=== PATIENT | female | born 1990 | race Caucasian/White ===

== ENCOUNTER 2019-07-07 08:22 | Emergency (ER) | payer OTHER ==
[~2019-07-07] VITALS: Ht 157.5 cm; Wt 69.9 kg
[2019-07-07 08:35] VITALS: BP 183/114
--- NOTE | 2019-07-07 08:49 | NUR ---
RECEIVED A 29/F FROM TRIAGE FOR C/O R SHOULDER AND STERNAL PAIN X 2 DAYS. DENIES ANY RECENT INJURY/TRAUMA. NO DEFORMITY NOTED. +ROM WITH PAIN. IN BED FOR MSE.
--- NOTE | 2019-07-07 09:35 | NUR ---
Patient discharged with v/s stable. Written and verbal after care instructions given and explained. Patient verbalized understanding. Ambulatory with steady gait. All questions addressed prior to discharge. Advised to follow up with PMD.
[2019-07-07 09:36] VITALS: BP 155/94
== END 2019-07-07 09:37 | disposition home or self-care (01) ==
LOC: MED 08:22
DX: M62.838 Other muscle spasm (principal); I10 Essential (primary) hypertension
CPT/HCPCS: 99281

== ENCOUNTER 2019-12-13 13:05 | Emergency (ER) | payer OTHER ==
[~2019-12-13] VITALS: Ht 160 cm; Wt 68.0 kg
[2019-12-13 13:13] VITALS: BP 144/101
--- NOTE | 2019-12-13 14:28 | NUR ---
AMBULATED TO BED 10
--- NOTE | 2019-12-13 14:39 | NUR ---
29/F presents to ED with complaints of epigastric pain starting this morning. Patient states pain started suddenly, non provoked, 02/06. Pt states she was drinking alcohol last night. Denies any N/V. Patient awake and alert appropriate to age. VSS .
[2019-12-13] MEDS ORDERED: ONDANSETRON 4 MG/2 ML VIAL IVP ONE ×2 (15:15→19:20)
[2019-12-13] MEDS ORDERED: MORPHINE SULFATE 4 MG/ML SYR IVP ONE ×2 (15:15→19:20)
[2019-12-13 15:32] LABS: BASOPHILS # (AUTO) 0.1 K/uL (0.00-0.22); BASOPHILS % (AUTO) 0.5 % (0.0-2.0); EOSINOPHILS % (AUTO) 0.2 % (0.0-4.0); HEMATOCRIT 40.5 % (36-48); HEMOGLOBIN 12.9 g/dL (12.0-16.0); LYMPHOCYTES # (AUTO) 1.3 K/uL (2.5-16.5); LYMPHOCYTES % (AUTO) 9.9 % (20.5-51.1); MEAN CORPUSCULAR HEMOGLOBIN 28 pg (27-31); MEAN CORPUSCULAR HGB CONC 32 g/dL (33-37); MEAN CORPUSCULAR VOLUME 88.8 fL (80-94); MONOCYTES # (AUTO) 0.9 K/uL (0.8-1.0); MONOCYTES % (AUTO) 7.2 % (1.7-9.3); NEUTROPHILS # (AUTO) 10.5 K/uL (1.8-7.7); NEUTROPHILS % (AUTO) 82.2 % (42.2-75.2); PLATELET COUNT (AUTO) 308 K/uL (140-450); RED BLOOD CELL COUNT(AUTO) 4.56 MIL/uL (4.20-5.40); RED CELL DISTRIBUTION WIDTH 12.9 % (11.6-13.7); WHITE BLOOD COUNT (AUTO) 12.8 K/uL (4.8-10.8)
--- NOTE | 2019-12-13 15:38 | NUR ---
PT RESTING IN BED, SIDE RAIL X1
--- NOTE | 2019-12-13 15:38 | NUR ---
US AT BEDSIDE
[2019-12-13 15:52] LABS: ALBUMIN 4.5 g/dL (3.4-5.0); ANION GAP 14.8 (8-16); CARBON DIOXIDE 29.1 mmol/L (21-32); CREATININE 0.9 mg/dL (0.6-1.3); POTASSIUM 3.9 mmol/L (3.5-5.1); TOTAL BILIRUBIN 0.4 mg/dL (0.0-1.0)
--- NOTE | 2019-12-13 18:40 | NUR ---
PT TAKEN TO CT VIA WHEELCHAIR
[2019-12-13 18:41] VITALS: BP 140/96
--- NOTE | 2019-12-13 19:18 | NUR ---
REPORT GIVEN TO SCOTTY MCKEON FOR CONTINUITY OF CARE
[2019-12-13] MEDS ORDERED: FAMOTIDINE 20 MG/2 ML VIAL IVP ONE (19:20)
[2019-12-13 19:27] LABS: APPEARANCE,URINE CLEAR (CLEAR); BILIRUBIN,URINE NEGATIVE (NEGATIVE); BLOOD, URINE NEGATIVE (NEGATIVE); COLOR,URINE YELLOW (YELLOW); LEUKOCYTE ESTERASE ,URINE NEGATIVE (NEGATIVE); NITRITE, URINE NEGATIVE (NEGATIVE); PH,URINE 6.5 (5.0-9.0); UGLUCOSE NEGATIVE (NEGATIVE)
== END 2019-12-13 17:01 | disposition home or self-care (01) ==
LOC: MED 13:05
DX: K21.9 Gastro-esophageal reflux disease without esophagitis (principal); I10 Essential (primary) hypertension
CPT/HCPCS: 36415; 74176; 76705; 80053; 81003; 81025; 82150; 83690; 85025; 96374; 96375; 96376; 99285; J2270; J2405; J3490; Q0092

== ENCOUNTER 2023-11-13 10:48 | Emergency (ER) | payer OTHER ==
[~2023-11-13] VITALS: Ht 160 cm; Wt 71.2 kg
[2023-11-13 11:03] VITALS: BP 137/89; PULSE 93; RESP 18; TEMP 98.3; O2SAT 98
[2023-11-13] MEDS ORDERED: OMEP20EC11 PO (12:13)
[2023-11-13] MEDS ORDERED: FAMO-92 PO (12:13)
[2023-11-13] MEDS: ALUMINUM HYD/MAG/SIMETHICONE 30 ML UDC PO ONE (12:30)
== END 2023-11-13 12:40 | disposition home or self-care (01) ==
LOC: MED 10:48
DX: K29.70 Gastritis, unspecified, without bleeding (principal); K21.9 Gastro-esophageal reflux disease without esophagitis; I10 Essential (primary) hypertension; Z79.899 Other long term (current) drug therapy
CPT/HCPCS: 81002; 81025; 99283